=== PATIENT | female | born 1955 | race Caucasian/White ===

== ENCOUNTER 2021-02-03 17:51 | Emergency (ER) | payer SELFPAY ==
[~2021-02-03] VITALS: Ht 175.3 cm; Wt 77.1 kg
[2021-02-03] MEDS ORDERED: ACETAMINOPHEN 325 MG TAB PO ONE (20:00)
[2021-02-03 21:30] VITALS: BP 134/79
== END 2021-02-03 22:26 | disposition home or self-care (01) ==
LOC: ER 17:51
DX: M25.561 Pain in right knee (principal); R51.9 Headache, unspecified; W01.0XXA Fall on same level from slipping, tripping and stumbling without subsequent striking against object, initial encounter; Y93.89 Activity, other specified; Y92.89 Other specified places as the place of occurrence of the external cause; Y99.8 Other external cause status
CPT/HCPCS: 70450; 72125; 73562

== ENCOUNTER 2021-02-10 11:04 | Emergency (ER) | payer MEDICARE, BC ==
[~2021-02-10] VITALS: Ht 175.3 cm; Wt 77.1 kg
[2021-02-10 11:39] VITALS: BP 140/74
[2021-02-10] MEDS ORDERED: cefTRIAXone SOD 1,000 MG VL IM ONE (11:45)
== END 2021-02-10 12:35 | disposition home or self-care (01) ==
LOC: ER 11:04
DX: S80.01XD Contusion of right knee, subsequent encounter (principal); E11.9 Type 2 diabetes mellitus without complications; I10 Essential (primary) hypertension; L08.9 Local infection of the skin and subcutaneous tissue, unspecified; Z86.73 Personal history of transient ischemic attack (TIA), and cerebral infarction without residual deficits; W19.XXXD Unspecified fall, subsequent encounter
CPT/HCPCS: 93971; 96372; 99284; J0696